=== PATIENT | female | born 1945 | race Caucasian/White ===

== ENCOUNTER 2018-05-19 12:34 | Day surgery (SDC) | payer MEDICARE, OTHER, SELFPAY ==
--- NOTE | 2018-05-14 17:31 | PM.PREOP ---
Pre-operative Note Interval Note Pre-op Check: History & Physical Reviewed by Physician
[2018-05-19] MEDS: PROPARACAINE 0.5% OPHTH SOL 2 DROPS EYE-OP (13:20)
[2018-05-19 13:26] VITALS: BMI 25.8
[2018-05-19 14:00] VITALS: BP 154/98; PULSE 72; RESP 20; TEMP 36.9; O2SAT 93
[2018-05-19] MEDS: CATARACT EYE COMPOUND (10 DROPS/SYRINGE) 3 DROPS EYE-OP (14:08)
[2018-05-19] MEDS: LACTATED RINGERS 1,000 ML 42 ML IV (14:50)
[2018-05-19] MEDS: CARBACHOL 1.5 ML VIAL INJ (15:16)
[2018-05-19] MEDS: HYALURONATE SODIUM 10 MG/ML SYRINGE INJ (15:17)
[2018-05-19] MEDS: CHONDROIDTIN/SOD HYALURONATE 1.05 ML SYRINGE INTRAOCULA (15:17)
[2018-05-19] MEDS: LIDOCAINE 1% W/EPI INJ 20 ML INJ (15:18)
[2018-05-19] MEDS: MOXIFLOXACIN OPHTH DROPS 3 ML BOTTLE 2 DROPS INJ (15:18)
[2018-05-19] MEDS: NEOMYCIN/POLY/DEX OPHTH OINT 1 APPLIC EYE-RIGHT (15:19)
[2018-05-19] MEDS: PHENYLEPHRINE/LIDOCAINE 3ML VIAL (OR) EYE-OP (15:19)
[2018-05-19] MEDS: TRIAMCINOLONE 50 MG/5 ML VIAL INJ (15:20)
[2018-05-19] MEDS: BALANCED SALT IRRIG SOLN NO.2 500 ML, EPINEPHrine 1 MG IRR (15:21)
[2018-05-19] MEDS: LIDOCAINE 2% 4 ML, BUPIVACAINE 0.5% (PF) 4 ML, HYALURONIDASE 150 UNIT INJ (15:21)
[2018-05-19] MEDS: TRYPAN BLUE 0.5 ML SYRINGE INJ (15:21)
[2018-05-19 15:45] VITALS: BP 127/96; PULSE 78; RESP 16; TEMP 36.3
[2018-05-19 15:51] VITALS: BP 161/87; PULSE 76; RESP 14; O2SAT 93
[2018-05-19 15:55] VITALS: BP 141/84; PULSE 72; RESP 15; O2SAT 97
--- NOTE | 2018-05-19 15:59 | SUR.PHASEI ---
Sats do drop to 90$% when more somnolent. Preop =93% on RA.
[2018-05-19 16:01] VITALS: BP 133/82; PULSE 68; RESP 18; TEMP 36.9; O2SAT 95
[2018-05-19 16:15] VITALS: BP 153/89; PULSE 66; RESP 16; O2SAT 95
--- NOTE | 2018-05-19 16:24 | SUR.PHASEII ---
Still with some anxiety and forgetfulness on discharge butdesiring discharge home. Sister close by and supportive. Will stay with patient tonight.
--- NOTE | 2018-05-19 21:25 | PM.PROC.1 ---
Procedures Date/Time Date of procedure: 05/19/18 Time of procedure: 14:25 General Procedure description: Date of service: May 19, 2000 Preoperative diagnoses: 1. Right nuclear sclerotic and cortical Cataract, need for capsular dye complex cataract Postoperative diagnoses: 1. Cataract removed with capsular dye in phacoemulsification with posterior chamber intraocular lens the 2. Restless leg syndrome. 3. Anxiety which precluded the continuation monitored sedation, general anesthetic was required. Procedure: Phacoemulsification with posterior chamber intraocular lens implant Surgeon: Janet Ho MD Complications: None Specimen: None Implant: +20.0 Blood loss: None Anesthesia: Retrobulbar with monitored standby Anesthesiologist: Xochitl Bowman M.D. Description of procedure: Patient is a female year old with decreased vision due to cataract which is affecting activities of daily living. She wants surgery to improve vision. She was taken to the operating room and given IV sedation. A retrobulbar block insert consisting of 6 cc of 2% xylocaine without epinephrine mixed half and half with 0.5% Marcaine with 1 cc of hyaluronidase added is placed between the medial and lateral 1/3 of the inferior orbital rim. Lid akinesia is obtain with 1% xylocaine with epinephrine infiltrated along the lid margin. The eye is manually massaged for 30 sec, prepped using Betadine solution, and draped in the usual sterile fashion. Patient had severe anxiety even with multiple doses of sedation and was not comfortable with a retrobublar blokck. she was converted to a laryngeal mask airway and the procedure proceded without complications. Temporal approach was made, a 1 mm side-port incision was made at the 7:30 position. Phenylephrine 1.5% mixed with 1% xylocaine 0.2 cc was placed into the anterior chamber. Viscoat followed by Healon was then placed. A 2.6 mm clear incision with a 2.6 mm blade was placed at the 170 degree meridian. A 360 degree capsulorrhexis style capsulotomy was then performed with a cystitome needle on a Healon. Hydrodelineation and hydrodissection were performed. The phacoemulsification unit is introduced, and sculpting notice used to groove the central lens. It is then removed in chopping mode. Epi nucleus is removed with epinuclear mode and irrigation aspiration was used to remove the peripheral cortex. The posterior capsule is polished. The intraocular lens is selected, inspected, power confirmed, and placed in the posterior chamber. The pupil was constricted. The wound was strongly hydrated and tested for leaks, there was none and it was left sutureless. Vigamox 0.1 cc was placed into the anterior chamber. Kenalog 0.2 cc was placed in the superior subconjunctival space. A drop of antibiotic and was placed and the eye was patched and shielded. The patient was stable and returned to the recovery room in excellent condition. Dictated by: Janet Ho MD Copy to: [facility]
== END 2018-05-19 16:26 | disposition home or self-care (01) ==
LOC: OR 12:38
PROVIDERS: Visit Provider Ophthalmology
PROC: (CPT 66984; principal; 2018-05-19 13:45)
DX: H25.11 Age-related nuclear cataract, right eye (principal); F41.9 Anxiety disorder, unspecified
CPT/HCPCS: 66984; J0171; J2250; J2405; J2704; J3010; J3301; J3470

== ENCOUNTER 2018-06-02 10:09 | Day surgery (SDC) | payer MEDICARE, OTHER, SELFPAY ==
[2018-06-02] MEDS: PROPARACAINE 0.5% OPHTH SOL 2 DROPS EYE-OP (10:26)
[2018-06-02 10:27] VITALS: BP 152/89; PULSE 71; RESP 16; TEMP 36.8; O2SAT 99; BMI 25.8
[2018-06-02] MEDS: CATARACT EYE COMPOUND (10 DROPS/SYRINGE) 3 DROPS EYE-OP (10:31)
--- NOTE | 2018-06-02 11:16 | PM.PREOP ---
Pre-operative Note Interval Note Pre-op Check: Yes History & Physical Reviewed by Physician Changes: No H&P completed within 30 days and has changed as indicated here:: Less anxious today. will try retrobulbar anesthesia. Had to convert to general last surgery.
[2018-06-02] MEDS: CHONDROIDTIN/SOD HYALURONATE 1.05 ML SYRINGE INTRAOCULA (11:46)
[2018-06-02] MEDS: CARBACHOL 1.5 ML VIAL INJ (11:46)
[2018-06-02] MEDS: BALANCED SALT IRRIG SOLN NO.2 15 ML IRRIG.SOLN IRR (11:46)
[2018-06-02] MEDS: LIDOCAINE 1% W/EPI INJ 20 ML INJ (11:47)
[2018-06-02] MEDS: NEOMYCIN/POLY/DEX OPHTH OINT 1 APPLIC EYE-LEFT (11:48)
[2018-06-02] MEDS: MOXIFLOXACIN OPHTH DROPS 3 ML BOTTLE 2 DROPS INJ (11:48)
[2018-06-02] MEDS: OFLOXACIN 0.3% OPHTH 5 ML 2 DROPS EYE-LEFT (11:49)
[2018-06-02] MEDS: PHENYLEPHRINE/LIDOCAINE 3ML VIAL (OR) EYE-OP (11:49)
[2018-06-02] MEDS: BALANCED SALT IRRIG SOLN NO.2 500 ML, EPINEPHrine 1 MG IRR (11:50)
[2018-06-02] MEDS: TRIAMCINOLONE 50 MG/5 ML VIAL INJ (11:50)
[2018-06-02] MEDS: LIDOCAINE 2% 4 ML, BUPIVACAINE 0.5% (PF) 4 ML, HYALURONIDASE 150 UNIT INJ (11:50)
[2018-06-02 12:11] VITALS: BP 158/87; PULSE 66; RESP 15; TEMP 36.4; O2SAT 97
--- NOTE | 2018-06-02 14:38 | PM.OP.1 ---
Procedure & Clinicians Procedure: Date of service: June 02, 2000 Preoperative diagnoses: 1. Nuclear sclerotic and cortical cataract. Postoperative diagnoses: 1. Cataract removal with phacoemulsification and posterior chamber intraocular lens implant left Procedure: Phacoemulsification with posterior chamber intraocular lens implant Surgeon: Janet Ho MD Complications: None Specimen: None Implant: +21.5 ZCBOO Blood loss: None Anesthesia: Retrobulbar with monitored standby Anesthesiologist: Isaak Bennett M.D. Description of procedure: Patient is a 70 year old the with decreased vision due to cataract which is affecting activities of daily living. She wants surgery to improve vision. She has less anxiety today and think she can tolerate a regional anesthetic. Last procedure required general. She has taken to the operating room and given IV sedation. A retrobulbar block insert consisting of 6 cc of 2% xylocaine without epinephrine mixed half and half with 0.5% Marcaine with 1 cc of hyaluronidase added is placed between the medial and lateral 1/3 of the inferior orbital rim. Lid akinesia is obtain with 1% xylocaine with epinephrine infiltrated along the lid margin. She had transient muscular spasm but this resolved the procedure proceeded without difficulty. The eye is manually massaged for 30 sec, prepped using Betadine solution, and draped in the usual sterile fashion. Temporal approach was made, a 1 mm side-port incision was made at the 12 oclock meridian. Phenylephrine 1.5% mixed with 1% xylocaine 0.2 cc was placed into the anterior chamber. Viscoat followed by Healon was then placed. A 2.6 mm clear incision with a 2.6 mm blade was placed at the 3 oclock meridian. A 360 degree capsulorrhexis style capsulotomy was then performed with a cystitome needle on a Healon. Hydrodelineation and hydrodissection were performed. The phacoemulsification unit is introduced, and sculpting notice used to groove the central lens. It is then removed in chopping mode. Epi nucleus is removed with epinuclear mode and irrigation aspiration was used to remove the peripheral cortex. The posterior capsule is polished. The intraocular lens is selected, inspected, power confirmed, and placed in the posterior chamber. The pupil [] constricted. The wound was stromally hydrated and tested for leaks, there was none and was left sutureless. Vigamox 0.1 cc was placed into the anterior chamber. Kenalog 0.2 cc was placed in the superior subconjunctival space. A drop of antibiotic and was placed and the eye was patched and shielded. The patient was stable and returned to the recovery room in excellent condition. Dictated by: Janet Ho MD Copy to: [facility] Same procedure as scheduled: Yes
== END 2018-06-02 12:23 | disposition home or self-care (01) ==
PROVIDERS: Visit Provider Ophthalmology
DX: H25.12 Age-related nuclear cataract, left eye (principal)
CPT/HCPCS: J0171; J2704; J3301; J3470